=== PATIENT | female | born 1965 | race Caucasian/White ===

== ENCOUNTER → 2017-08-19 | Outpatient (CLI) | payer BC ==
[~2017-08-19] MED LIST: ADALAT PO; DECONAMINE SR 81 CER PO; HCTZ 25MG25 MG PO; LEVOTHYROXIN0.088 MG PO; LEXAPRO 10MG10 MG PO
== END ==
LOC: COL.RAD 12:00
DX: S63.591A Other specified sprain of right wrist, initial encounter (principal); M67.431 Ganglion, right wrist; M18.11 Unilateral primary osteoarthritis of first carpometacarpal joint, right hand
CPT/HCPCS: A9585; Q9967

== ENCOUNTER → 2018-07-18 | Outpatient (CLI) | payer BC | LOC: COL.RAD 09:15 | DX: M19.031 Primary osteoarthritis, right wrist (principal); S63.591A Other specified sprain of right wrist, initial encounter | CPT/HCPCS: A9585; Q9967 ==

== ENCOUNTER → 2019-01-19 | Outpatient (CLI) | payer BC | LOC: COL.RAD 11:09 | DX: I63.331 Cerebral infarction due to thrombosis of right posterior cerebral artery (principal) | CPT/HCPCS: Q9967 ==

== ENCOUNTER 2019-08-29 09:45 | Inpatient (IN) | payer BC ==
[~2019-08-29] VITALS: Ht 170.2 cm; Wt 91.9 kg
[2019-09-06] VITALS (19 sets, daily range): BP systolic 128–160; BP diastolic 83–100; PULSE 75–99; TEMP 97.9
[2019-09-06] MEDS ORDERED: PRINIVIL40 MG PO (08:04)
[2019-09-06] MEDS ORDERED: NORVASC 5MG5 MG/TAB PO (08:04)
[2019-09-06] MEDS ORDERED: SYNTHROID0.1 MG/TAB PO (08:05)
[2019-09-06] MEDS ORDERED: ZYRTEC 10MG10 MG PO (08:05)
[2019-09-06] MEDS ORDERED: SINGULAIR 110 MG/TAB PO (08:06)
[2019-09-06] MEDS ORDERED: ASPIRIN E.C. 8181 MG PO (08:06)
[2019-09-06] MEDS ORDERED: CRESTOR5 MG PO (08:07)
[2019-09-06] MEDS ORDERED: FLONASEALLERGY NS (08:08)
[2019-09-06] MEDS ORDERED: ASTELIN NASAL S34 ML NS (08:09)
[2019-09-06] MEDS ORDERED: CIPRO 500MG TA500 MG PO (08:09)
--- NOTE | 2019-09-06 08:23 | NUR ---
TO RM AT 0722- CALL LIGHT IN REACH ALERT ORIENTED X3, VERBALIZED UNDERSTANDING AND SIGNED CONSENT. AT BEDSIDE AND RECEIVED PATIENT IDENTIFACATION NUMBER
--- NOTE | 2019-09-06 08:42 | NUR ---
Pharmacy called concerning allergy to claritin and order for Meclazine. Pharmacy due to the severity of allergic reaction to hold the claritin.
--- NOTE | 2019-09-06 10:00 | NUR ---
PATIENT TAKEN TO RADIOLOGY
--- NOTE | 2019-09-06 10:00 | NUR ---
PT ROXIE INTO CT ROOM ON CART. PT GETS UP AND TRANSFERS TO CT TABLE. PT IN POSITION, IMAGES TAKEN AND SENT. MONITORING EQUIPMENT PLACED.
--- NOTE | 2019-09-06 10:09 | NUR ---
VERSED 1 MG AND [id number] MCG GIVEN IVSP
--- NOTE | 2019-09-06 10:41 | NUR ---
FENTANYL 25 MCG IVSP
--- NOTE | 2019-09-06 11:00 | NUR ---
FENTANYL 25 MCG IVSP
--- NOTE | 2019-09-06 11:15 | NUR ---
25 MCG FENTANYL IVSP
--- NOTE | 2019-09-06 11:30 | NUR ---
RETURNED TO RM [address] ADKINS WILL BE IN TO TALK WITH PATIENT AND
--- NOTE | 2019-09-06 11:30 | NUR ---
REPORT CALLED TO [facility]. UNABLE TO PLACE GUIDE WIRE. DR GARCIA CALLED AND SPOKE TO DR ADKINS. [place] [facility] [place] VERSED 1 MG AND 125 MCG FENTANYL GIVEN SIVP
--- NOTE | 2019-09-06 12:55 | NUR ---
DR ADKINS INTO TALKE WITH PATIENT AND . PROCEDURE CANCELLED PER ORDER DISCONTINUED IV AND INT PATIENT GETTING DRESSED RECEIVED A NOTE FOR WORK
--- NOTE | 2019-09-06 13:15 | NUR ---
DISCHARGED PER WC BY NURSING STAFF TO PRIVATE CAR IN CARE OF -RAFAEL
== END 2019-09-06 13:42 | disposition home or self-care (01) | DRG 694 ==
LOC: INPTSU 09-06 07:17 → EDSTATUS 09-06 09:00 → SURG 09-06 09:00 → COL.RAD 09-06 09:00 → INPTSU 09-06 13:42
PROVIDERS: ADMIT Urology
PROC: 0T913ZX Drainage of Left Kidney, Percutaneous Approach, Diagnostic (ICD-10-PCS; principal; 2019-09-06)
DX: N13.2 Hydronephrosis with renal and ureteral calculous obstruction (principal); I10 Essential (primary) hypertension; D50.9 Iron deficiency anemia, unspecified; E06.3 Autoimmune thyroiditis; E89.0 Postprocedural hypothyroidism; R31.0 Gross hematuria; Z85.3 Personal history of malignant neoplasm of breast; Z90.710 Acquired absence of both cervix and uterus; Z86.73 Personal history of transient ischemic attack (TIA), and cerebral infarction without residual deficits; Z98.51 Tubal ligation status; Z79.82 Long term (current) use of aspirin
CPT/HCPCS: OP; J2250; J3010; J7120

== ENCOUNTER 2020-04-25 11:13 | Day surgery (SDC) | payer BC ==
[2020-04-25] VITALS (10 sets, daily range): BP systolic 109–157; BP diastolic 70–88; PULSE 64–83; TEMP 97.4
[~2020-04-25] VITALS: Ht 170.3 cm; Wt 94.3 kg
[~2020-04-25 11:13] MED LIST changes: +ASPIRIN E.C. 8181 MG PO; +ASTELIN NASAL S34 ML NS; +CIPRO 500MG TA500 MG PO; +CRESTOR5 MG PO; +FLONASEALLERGY NS; +NORVASC 5MG5 MG/TAB PO; +PRINIVIL40 MG PO; +SINGULAIR 110 MG/TAB PO; +SYNTHROID0.1 MG/TAB PO; +ZYRTEC 10MG10 MG PO
[2020-04-25 11:57] LABS: HEMATOCRIT 38.7 % (37.0-47.0); HEMOGLOBIN 12.4 g/dl (12.5-16.0); MEAN CELL VOLUME 79 fl (80.0-100.0); MEAN CORPUSCULAR HEMOGLOBIN 25 pg (27.0-31.0); MEAN CORPUSCULAR HGB CONC 32 g/dl (33.0-37.0); MEAN PLATELET VOLUME 9.8 fl (7.4-10.4); PLATELET COUNT 382 K/mm3 (130-400); RED BLOOD COUNT 4.89 M/mm3 (4.10-5.30); REDCELL DISTRIBUTION WIDTH-CV 15.2 % (11.5-14.5)
[2020-04-25 11:58] LABS: PROTHROMBIN TIME 11.7 SECONDS (9.7-12.8)
[2020-04-25 12:09] LABS: CALCIUM 9.1 mg/dL (8.4-10.2); CREATININE, serum 0.75 (0.52-1.25)
--- NOTE | 2020-04-25 14:07 | NUR ---
SEE MERGE DOCUMENTATION FOR MEDICATION ADMINISRATION TIMES AND INTRA/POST PROCEDURE SEDATION ASSESSMENTS. RIGHT HAND BARBEUA TEST POSITIVE.
--- NOTE | 2020-04-25 14:45 | NUR ---
Report from Filiberto REDDY. Alert and oriented, denies pain and needs at this time. Right Tband with 16 cc air CD&I. Good pulses and Cap refill < 3 secs noted.
--- NOTE | 2020-04-25 16:50 | NUR ---
16 cc air out of right Tband, pressure dressing applied. INT discontinued intact. Discharge instructions given. Transferred to private car by osmel
== END 2020-04-25 17:00 | disposition home or self-care (01) ==
LOC: COL.CAR 11:13
PROVIDERS: Internal Medicine Interventional Cardiology
DX: R07.9 Chest pain, unspecified (principal); R94.39 Abnormal result of other cardiovascular function study; Z86.73 Personal history of transient ischemic attack (TIA), and cerebral infarction without residual deficits; Z79.51 Long term (current) use of inhaled steroids; Z79.82 Long term (current) use of aspirin; E03.9 Hypothyroidism, unspecified; Z88.5 Allergy status to narcotic agent; J30.81 Allergic rhinitis due to animal (cat) (dog) hair and dander
CPT/HCPCS: J1644; J2250; J3010; Q9967